=== PATIENT | male | born 2005 | race African-American/Black ===

== ENCOUNTER 2024-08-19 17:39 | Emergency (ER) | payer SELFPAY ==
[2024-08-19] MEDS ORDERED: Fluorescein Opthalmic Strip ONE (19:14)
[2024-08-19] MEDS ORDERED: Proparacaine 0.5% Opth 15 ML BOT ONE (19:15)
== END 2024-08-19 19:45 | disposition home or self-care (01) ==
LOC: ERS 17:39
DX: T26.61XA Corrosion of cornea and conjunctival sac, right eye, initial encounter (principal); F17.290 Nicotine dependence, other tobacco product, uncomplicated; G47.30 Sleep apnea, unspecified; Y93.89 Activity, other specified; Y92.69 Other specified industrial and construction area as the place of occurrence of the external cause
CPT/HCPCS: 99283